=== PATIENT | female | born 1980 | race Caucasian/White ===

== ENCOUNTER 2019-03-26 13:55 | Observation (INO) ==
[2019-03-26 14:39] LABS: Basophils % 0.3 %; Eosinophils # 0.1 K/mcL (0.0-0.6); Eosinophils % 0.4 %; Hematocrit 37.3 % (35.3-44.9); Hemoglobin 12.4 g/dL (11.5-15.4); Immature Granulocytes % 0.5 % (0-4); Lymphocytes # 1.8 K/mcL (0.6-4.6); Lymphocytes % 16.3 %; Mean Corpuscular HGB Conc 33.2 g/dL (31.6-35.5); Mean Corpuscular Hemoglobin 31.7 pg (28.0-33.3); Mean Corpuscular Volume 95.4 fL (83.0-100.0); Mean Platelet Volume 10.5 fL (9.4-12.4); Monocytes # 0.5 K/mcL (0.0-1.3); Monocytes % 4.9 %; Neutrophils # 8.6 K/mcL (1.6-8.9); Platelet Count 215 K/mcL (140-400); Red Blood Count 3.91 M/mcL (3.82-4.97); Red Cell Distribution Width 12.9 % (11.5-14.5); Segmented Neutrophils % 77.6 %; White Blood Count 11.1 K/mcL (4.3-11.1)
[2019-03-26 15:30] LABS: Alanine Aminotransferase 9 Units/L (7-52); Aspartate Amino Transferase 15 Units/L (13-39); Blood Urea Nitrogen 11 mg/dL (6-20); Lactate Dehydrogenase 164 Units/L (140-271); Uric Acid 4.5 mg/dL (2.3-7.6)
[2019-03-26 15:40] LABS: Protein/Creatinine Ratio,Urine 0.17 mg/mg (0.00-0.20)
[2019-03-26 15:59] LABS: BUN/Creatinine Ratio 22 (6-26); eGFR For African Americans > 60 (> 60); eGFR For Non-African Americans > 60 (> 60)
== END 2019-03-26 16:28 | disposition home or self-care (01) ==
LOC: 1NENULAB
PROVIDERS: ADMIT Registered Nurse; ATTEND Registered Nurse

== ENCOUNTER → 2019-04-21 04:28 | Observation (INO) ==
[2019-04-21 01:40] LABS: Basophils % 0.2 %; Eosinophils # 0.1 K/mcL (0.0-0.6); Eosinophils % 0.7 %; Hematocrit 39.2 % (35.3-44.9); Immature Granulocytes % 0.5 % (0-4); Lymphocytes # 1.7 K/mcL (0.6-4.6); Lymphocytes % 13.2 %; Mean Corpuscular HGB Conc 33.2 g/dL (31.6-35.5); Mean Corpuscular Hemoglobin 31.6 pg (28.0-33.3); Mean Corpuscular Volume 95.4 fL (83.0-100.0); Mean Platelet Volume 11.2 fL (9.4-12.4); Monocytes # 0.8 K/mcL (0.0-1.3); Neutrophils # 10.4 K/mcL (1.6-8.9); Platelet Count 188 K/mcL (140-400); Red Blood Count 4.11 M/mcL (3.82-4.97); Red Cell Distribution Width 12.8 % (11.5-14.5); Segmented Neutrophils % 79.4 %; White Blood Count 13.2 K/mcL (4.3-11.1)
[2019-04-21 01:48] LABS: Protein/Creatinine Ratio,Urine 0.17 mg/mg (0.00-0.20)
[2019-04-21 01:59] LABS: Alanine Aminotransferase 7 Units/L (7-52); Aspartate Amino Transferase 12 Units/L (13-39); BUN/Creatinine Ratio 13 (6-26); Blood Urea Nitrogen 7 mg/dL (6-20); Lactate Dehydrogenase 149 Units/L (140-271); Uric Acid 4.9 mg/dL (2.3-7.6); eGFR For African Americans > 60 (> 60); eGFR For Non-African Americans > 60 (> 60)
== END | disposition home or self-care (01) ==
LOC: 1NENULAB
PROVIDERS: ADMIT Advanced Practice Midwife; ATTEND Advanced Practice Midwife

== ENCOUNTER 2019-04-24 18:05 | Inpatient (IN) ==
[2019-04-24] MEDS ORDERED: 0.9 % Sodium Chloride 1,000 ML IV ONE (18:48)
[2019-04-24] MEDS ORDERED: Ampicillin/Sulbactam 3,000 MG in 0.9 % Sodium Chloride 100 ML IVPB ONE (18:50)
[2019-04-24] MEDS ORDERED: Clindamycin 900 MG/50 ML 900 MG/50 ML IV.SOLN IVPB ONE ×2 (18:54→18:55)
[2019-04-24 18:55] LABS: Basophils % 0.3 %; Eosinophils # 0.1 K/mcL (0.0-0.6); Eosinophils % 0.5 %; Hematocrit 32.3 % (35.3-44.9); Hemoglobin 10.6 g/dL (11.5-15.4); Immature Granulocytes % 1.4 % (0-4); Lymphocytes % 21.2 %; Mean Corpuscular HGB Conc 32.8 g/dL (31.6-35.5); Mean Corpuscular Hemoglobin 32.5 pg (28.0-33.3); Mean Corpuscular Volume 99.1 fL (83.0-100.0); Mean Platelet Volume 11.1 fL (9.4-12.4); Monocytes # 0.8 K/mcL (0.0-1.3); Monocytes % 8.1 %; Neutrophils # 6.5 K/mcL (1.6-8.9); Nucleated Red Blood Cells 0.4 /100 WBC (0); Platelet Count 157 K/mcL (140-400); Red Blood Count 3.26 M/mcL (3.82-4.97); Red Cell Distribution Width 13.1 % (11.5-14.5); Segmented Neutrophils % 68.5 %; White Blood Count 9.5 K/mcL (4.3-11.1)
[2019-04-24 19:14] LABS: BUN/Creatinine Ratio 16 (6-26); Blood Urea Nitrogen 9 mg/dL (6-20); Calcium 7.8 mg/dL (8.6-10.3); Carbon Dioxide 23 mEq/L (23-29); Chloride 109 mEq/L (98-107); Glucose 87 mg/dL (70-105); Osmolality,Calculated 278 (280-300); Sodium 135 mEq/L (136-145); eGFR For African Americans > 60 (> 60); eGFR For Non-African Americans > 60 (> 60)
[2019-04-24 19:23] LABS: Bilirubin,Urine Negative (Negative); Blood,Urine Negative (Negative); Clarity,Urine Cloudy (Clear); Color,Urine Yellow (Yellow); Glucose,Urine (UA) Normal (Normal); Ketones,Urine Negative (Negative); Leukocyte Esterase,Urine Negative (Negative); Nitrite,Urine Negative (Negative); Protein,Urine Negative (Neg-Trace); Specific Gravity,Urine 1.008 (1.010-1.025); Urobilinogen,Urine Normal (Normal)
[2019-04-24 19:25] LABS: Bacteria,Urine Moderate per hpf (None-Few); Hyaline Casts,Urine None Seen per lpf (None-Few); Squamous Epithelial Cell,Urine Many per lpf (None-Few)
[2019-04-24 19:46] LABS: RBC,Urine 0-3 per hpf (0-3)
[2019-04-24] MEDS ORDERED: Lidocaine -MPF 1% 5 ML AMPUL INFILT ONE (20:38)
[2019-04-24] MEDS ORDERED: Acetaminophen 325 MG TABLET PO ONE (21:42)
[2019-04-25 00:14] LABS: Lactate Dehydrogenase 136 Units/L (140-271); Uric Acid 4.8 mg/dL (2.3-7.6)
[2019-04-25 00:16] LABS: Protein/Creatinine Ratio,Urine 0.26 mg/mg (0.00-0.20)
[2019-04-25] MEDS ORDERED: Ondansetron 4 MG/2 ML VIAL IVP PRN (00:28)
[2019-04-25] MEDS: Acetaminophen 325 MG TABLET PO PRN ×2 (04:55→11:41)
[2019-04-25] MEDS: Clindamycin 900 MG/50 ML 900 MG/50 ML IV.SOLN IVPB SCH ×2 (04:55→13:29)
[2019-04-25] MEDS: Famotidine 20 MG/2 ML VIAL IVP SCH ×2 (05:52→17:11)
[2019-04-25] MEDS ORDERED: Prenatal Vit/FA 1 EACH TABLET PO SCH (09:00)
[2019-04-25 16:24] VITALS: BP 139/82
== END 2019-04-25 19:49 | disposition home or self-care (01) | DRG 566 ==
LOC: EMEROOARM 18:05 → 1NENULAB 18:05 → 1NENUOBS 04-25 02:20
PROVIDERS: ADMIT Obstetrics & Gynecology; ATTEND Obstetrics & Gynecology

== ENCOUNTER 2019-05-12 08:12 | Inpatient (IN) ==
[2019-05-12] MEDS ORDERED: CeFAZolin 2,000 MG/50 ML BAG IVPB ONE (08:29)
[2019-05-12] MEDS ORDERED: Ringers Solution, Lactated 1,000 ML IVC ONE (08:29)
[2019-05-12] MEDS ORDERED: Metoclopramide 10 MG/2 ML VIAL IVP ONE (08:29)
[2019-05-12] MEDS ORDERED: Famotidine 20 MG/2 ML VIAL IVP ONE (08:29)
[2019-05-12] MEDS ORDERED: Ringers Solution, Lactated 1,000 ML IVC SCH (08:30)
[2019-05-12] MEDS ORDERED: Oxytocin 20 units/ LR 1000 mL 20 UNIT/1,000 ML BAG IVC SCH (08:30)
[2019-05-12 09:09] LABS: Basophils % 0.3 %; Eosinophils # 0.1 K/mcL (0.0-0.6); Eosinophils % 1.3 %; Hematocrit 37.3 % (35.3-44.9); Hemoglobin 12.5 g/dL (11.5-15.4); Immature Granulocytes % 0.6 % (0-4); Lymphocytes % 28.2 %; Mean Corpuscular HGB Conc 33.5 g/dL (31.6-35.5); Mean Corpuscular Hemoglobin 31.7 pg (28.0-33.3); Mean Corpuscular Volume 94.7 fL (83.0-100.0); Monocytes # 0.5 K/mcL (0.0-1.3); Monocytes % 6.4 %; Neutrophils # 4.4 K/mcL (1.6-8.9); Platelet Count 190 K/mcL (140-400); Red Blood Count 3.94 M/mcL (3.82-4.97); Red Cell Distribution Width 13.1 % (11.5-14.5); Segmented Neutrophils % 63.2 %
[2019-05-12 09:10] LABS: Protein/Creatinine Ratio,Urine 0.28 mg/mg (0.00-0.20)
[2019-05-12 09:11] LABS: Amphetamine Screen,Urine Negative ng/mL (Cutoff=1000); Barbiturate Screen,Urine Negative ng/mL (Cutoff=200); Benzodiazepines Screen,Urine Negative ng/mL (Cutoff=200); Cannabinoid Screen,Urine Negative ng/mL (Cutoff = 50); Cocaine Screen,Urine Negative ng/mL (Cutoff= 300); Opiate Screen,Urine Negative ng/mL (Cutoff=300); Phencyclidine Screen,Urine Negative ng/mL (Cutoff=25)
[2019-05-12 09:22] LABS: Alanine Aminotransferase 8 Units/L (7-52); Aspartate Amino Transferase 13 Units/L (13-39); BUN/Creatinine Ratio 25 (6-26); Blood Urea Nitrogen 16 mg/dL (6-20); Lactate Dehydrogenase 154 Units/L (140-271); eGFR For African Americans > 60 (> 60); eGFR For Non-African Americans > 60 (> 60)
[2019-05-12] MEDS ORDERED: *HR* Morphine Sulfate/PF 10 MG/10 ML AMPUL ONE (09:28)
[2019-05-12] MEDS ORDERED: *HR* FentaNYL (PF) 100 MCG/2 ML VIAL ONE (09:28)
[2019-05-12] MEDS ORDERED: *HR* Oxytocin 10 UNIT/ML VIAL IM ONE (09:31)
[2019-05-12] MEDS ORDERED: Ondansetron 4 MG/2 ML VIAL IVP PRN ×2 (11:59→13:59)
[2019-05-12] MEDS ORDERED: *HR* OxyCODONE/APAP 5/325 TABLET PO PRN (11:59)
[2019-05-12] MEDS ORDERED: Ibuprofen 400 MG TABLET PO PRN (11:59)
[2019-05-12] MEDS ORDERED: Morphine Sulfate 2 MG/ML SYRINGE IVP PRN (11:59)
[2019-05-12] MEDS ORDERED: Naloxone 0.4 MG/ML INJ IVP PRN (11:59)
[2019-05-12] MEDS ORDERED: *HR* HYDROmorphone (PF) 1 MG/ML SYRINGE IVP PRN (11:59)
[2019-05-12] MEDS ORDERED: Acetaminophen IV 1,000 MG/100 ML INFUS..BTL IVPB ONE (12:04)
[2019-05-12] MEDS ORDERED: Sennosides 8.6 MG TABLET PO PRN (13:59)
[2019-05-12] MEDS ORDERED: Simethicone 80 MG TAB.CHEW PO PRN (13:59)
[2019-05-12] MEDS ORDERED: Acetaminophen 325 MG TABLET PO PRN (13:59)
[2019-05-12] MEDS ORDERED: Rho Immune Globulin 1,500 UNIT SYRINGE IM ONE (13:59)
[2019-05-12] MEDS ORDERED: *HR* OxyCODONE Immed Rel 5 MG TABLET PO PRN (13:59)
[2019-05-12] MEDS ORDERED: Metoclopramide 10 MG/2 ML VIAL IVP PRN (13:59)
[2019-05-12] MEDS: Famotidine 20 MG TABLET PO SCH (16:00)
[2019-05-12] MEDS: cephALEXin 500 MG CAPSULE PO SCH (20:12)
[2019-05-12] MEDS: Ibuprofen 600 MG TABLET PO PRN (20:13)
[2019-05-12] MEDS: Ringers Solution, Lactated 1,000 ML IVC SCH (20:15)
[2019-05-13] MEDS: *HR* OxyCODONE/APAP 5/325 TABLET PO PRN ×5 (00:04→21:46)
[2019-05-13] MEDS: Ibuprofen 600 MG TABLET PO PRN ×3 (04:46→16:44)
[2019-05-13 05:23] LABS: Basophils % 0.3 %; Eosinophils # 0.1 K/mcL (0.0-0.6); Hematocrit 31.6 % (35.3-44.9); Immature Granulocytes % 0.3 % (0-4); Lymphocytes # 2.1 K/mcL (0.6-4.6); Lymphocytes % 29.8 %; Mean Corpuscular HGB Conc 32.9 g/dL (31.6-35.5); Mean Corpuscular Hemoglobin 31.3 pg (28.0-33.3); Mean Corpuscular Volume 95.2 fL (83.0-100.0); Mean Platelet Volume 10.3 fL (9.4-12.4); Monocytes # 0.3 K/mcL (0.0-1.3); Monocytes % 4.8 %; Neutrophils # 4.5 K/mcL (1.6-8.9); Platelet Count 154 K/mcL (140-400); Red Blood Count 3.32 M/mcL (3.82-4.97); Segmented Neutrophils % 63.8 %; White Blood Count 7.1 K/mcL (4.3-11.1)
[2019-05-13 05:27] LABS: Hemoglobin 10.4 g/dL (11.5-15.4)
[2019-05-13 05:41] LABS: Alanine Aminotransferase 8 Units/L (7-52); Aspartate Amino Transferase 19 Units/L (13-39); BUN/Creatinine Ratio 15 (6-26); Blood Urea Nitrogen 10 mg/dL (6-20); Lactate Dehydrogenase 193 Units/L (140-271); Uric Acid 5.8 mg/dL (2.3-7.6); eGFR For African Americans > 60 (> 60); eGFR For Non-African Americans > 60 (> 60)
[2019-05-13 06:04] LABS: Platelet Estimate Slight Decrease (Normal)
[2019-05-13] MEDS: Oxytocin 20 units/ LR 1000 mL 20 UNIT/1,000 ML BAG IVC SCH ×3 (07:35→10:24)
[2019-05-13] MEDS: Ringers Solution, Lactated 1,000 ML IVC SCH ×3 (07:36→15:49)
[2019-05-13] MEDS: Famotidine 20 MG TABLET PO SCH ×2 (07:51→15:57)
[2019-05-13] MEDS: Prenatal Vit/FA 1 EACH TABLET PO SCH (07:52)
[2019-05-13] MEDS: cephALEXin 500 MG CAPSULE PO SCH ×2 (07:53→20:07)
[2019-05-14] MEDS: Ibuprofen 600 MG TABLET PO PRN ×3 (02:08→20:47)
[2019-05-14] MEDS: *HR* OxyCODONE/APAP 5/325 TABLET PO PRN ×5 (02:09→20:48)
[2019-05-14] MEDS: Famotidine 20 MG TABLET PO SCH ×2 (07:55→16:50)
[2019-05-14] MEDS: Prenatal Vit/FA 1 EACH TABLET PO SCH (07:55)
[2019-05-14] MEDS: cephALEXin 500 MG CAPSULE PO SCH ×2 (07:56→20:47)
[2019-05-14] MEDS: Sulfamethoxazole/Trimeth DS 1 EACH TABLET PO SCH (16:50)
[2019-05-15] MEDS: Ibuprofen 600 MG TABLET PO PRN ×2 (04:37→13:04)
[2019-05-15] MEDS: *HR* OxyCODONE/APAP 5/325 TABLET PO PRN ×2 (04:38→09:16)
[2019-05-15] MEDS: cephALEXin 500 MG CAPSULE PO SCH (08:02)
[2019-05-15] MEDS: Sulfamethoxazole/Trimeth DS 1 EACH TABLET PO SCH (08:03)
[2019-05-15] MEDS: Prenatal Vit/FA 1 EACH TABLET PO SCH (08:03)
[2019-05-15] MEDS: Famotidine 20 MG TABLET PO SCH (08:04)
[2019-05-15 08:30] VITALS: BP 130/85
== END 2019-05-15 14:21 | disposition home or self-care (01) | DRG 540 ==
LOC: 1NENULAB 08:12 → 1NENUOBS 13:36
PROVIDERS: ADMIT Obstetrics & Gynecology; ATTEND Obstetrics & Gynecology